=== PATIENT | male | born 1950 | race Caucasian/White ===

== ENCOUNTER → 2016-10-27 | Outpatient (CLI) | payer BC ==
[2016-06-28 18:10] VITALS: BP 138/77
[~2016-10-27] MED LIST: METF500T4 PO; RIVA15TA PO; ROSI2TAB PO
--- NOTE | 2016-10-27 14:06 | RAD ---
APPROVED REPORT Bilateral Lower Extremity Venous Study for DVT Patient Location: OUT-PATIENT Indications Deep venous system in the lower extremities was performed. On the right D common femoral vein appears to be grossly compressible proximally. The mid to distal s uperficial femoral vein and popliteal veins are noncompressible. Spectral waveforms and color Doppler reveal grossly normal flow patterns. Overall, there is not appear to be any significant restriction to flow. Limited evaluation of the greater saphenous vein on the right side reveals possible thrombus in the distal segments. The below-knee veins on the right side were not well visualized on sharma scal e images but there is spontaneous flow noted. The left common femoral vein, superficial femoral vein and popliteal veins on the left side are compr essible. Spectral waveforms and color Doppler are within normal limits. Below-knee veins again were n ot well visualized due to body habitus and were found to have spontaneous flow. Critical Notification Critical Value: No <Conclusion> Persistent right lower extremity deep venous thrombosis without any significant flow limitation.
== END | disposition home or self-care (01) ==
LOC: US 07:40
PROVIDERS: ATTEND Physician Assistant
DX: I25.10 Atherosclerotic heart disease of native coronary artery without angina pectoris (principal); I82.403 Acute embolism and thrombosis of unspecified deep veins of lower extremity, bilateral; M79.89 Other specified soft tissue disorders
CPT/HCPCS: 93970

== ENCOUNTER → 2016-10-27 | Outpatient (CLI) | payer BC ==
[2016-06-28 18:10] VITALS: BP 138/77
--- NOTE | 2016-10-27 13:40 | RAD ---
APPROVED REPORT Patient Location: OUT-PATIENT Indications Jose scale images of the bilateral lower extremities demonstrate mild diffuse calcification but no hi gh grade lesions noted. Spectral waveforms and color doppler evaluation does not reveal any elevated velocities. Spectral tracings are triphasic. Critical Notification Critical Value: No <Conclusion> No significant high grade arterial stenosis in the bilateral lower extremities.
== END | disposition home or self-care (01) ==
LOC: US 07:47
PROVIDERS: ATTEND Internal Medicine Cardiovascular Disease
DX: I25.10 Atherosclerotic heart disease of native coronary artery without angina pectoris (principal)
CPT/HCPCS: 93925

== ENCOUNTER → 2017-06-13 | Outpatient (CLI) | payer BC ==
[2016-06-28 18:10] VITALS: BP 138/77
--- NOTE | 2017-06-13 16:33 | RAD ---
APPROVED REPORT Right Lower Extremity Venous Study for DVT Patient Location: OUT-PATIENT Indications Jose scale images of the right lower ext deep veins were obtained. The R femoral and popliteal veins have a non-occlusive thrombus (chronic known) with non-compressibility. The below knee veins on the r ight side demonstrate spontaneous flow and appear to be compressible. (Images are technically limited ). Spectral images of the RLE do not reveal any evidence of complete obstruction, but there is loss o f respirophasicity in the femoral vein. The common femoral vein bilaterally is free of thrombus. Critical Notification Critical Value: No <Conclusion> Persistent right femoral and popliteal vein DVT. The thrombus is chronic and is non-flow limiting.
== END | disposition home or self-care (01) ==
LOC: US 12:45
PROVIDERS: ATTEND Internal Medicine Cardiovascular Disease
DX: I82.511 Chronic embolism and thrombosis of right femoral vein (principal); I82.531 Chronic embolism and thrombosis of right popliteal vein; Z79.01 Long term (current) use of anticoagulants
CPT/HCPCS: 93971

== ENCOUNTER → 2020-03-03 | Outpatient (CLI) | payer MEDICARE ==
[2016-06-28 18:10] VITALS: BP 138/77
[~2020-03-03] MED LIST changes: +METF500T16 PO; -METF500T4 PO
--- NOTE | 2020-03-03 14:14 | CARD ---
MR#: [id number] Date of Study: 03/03/2020 Ordering Physician: OMARI YEAGER, Referring Physician: OMARI YEAGER, Tech: Claire Osborn APPROVED REPORT EXAM: Two-dimensional and M-mode echocardiogram with Doppler and color Doppler. Other Information Quality : Average Technically limited study due to INDICATION Congestive Heart Failure RISK FACTORS Hypertension Hyperlipidemia Diabetes 2D DIMENSIONS RVDd4.1 (2.9-3.5cm)Left Atrium(2D)3.8 (1.6-4.0cm) IVSd1.3 (0.7-1.1cm)Aortic Root(2D)3.6 (2.0-3.7cm) LVDd4.5 (3.9-5.9cm)LVOT Diameter2.2 (1.8-2.4cm) PWd1.0 (0.7-1.1cm)LVDs3.0 (2.5-4.0cm) FS (%) 32.2 %SV54.8 ml LVEF(%)60.5 (>50%) Aortic Valve AoV Peak Roman.122.7cm/sAoV VTI25.7cm AO Peak GR.6.0mmHgLVOT Peak Roman.103.1cm/s LVOT VTI 20.44cmAO Mean GR.3mmHg GONZALO (VMAX)3.40wd4SLA (VTI)3.08cm2 Mitral Valve MV E Fjfbmcpg77.7cm/sMV E Peak Gr.2mmHg MV DECEL [id number] A Cknpmyge07.2cm/s MV E Mean Gr.1mmHgE/A Ratio0.7 Pulmonary Valve PV Peak Upizuhnd70.5cm/sPV Peak Grad.4mmHg Tricuspid Valve TR P. Jipnfgfm193mu/sRAP POJXTRKT0mnYs TR Peak Gr.81duJpCUNC57glAh Pulmonary Vein S1 Vaanszdn40.0cm/sD2 Ucezcmix29.5cm/s LEFT VENTRICLE The left ventricle is normal size. There is borderline to mild concentric left ventricular hypertroph y. The left ventricular systolic function is normal and the ejection fraction is within normal range. The Ejection Fraction is 50-55%. There is normal LV segmental wall motion. Transmitral Doppler flow pattern is Grade I-abnormal relaxation pattern. RIGHT VENTRICLE The right ventricle is normal size. There is normal right ventricular wall thickness. The right ventr icular systolic function is normal. ATRIA The left atrium size is normal. The right atrium size is normal. The interatrial septum is intact wit h no evidence for an atrial septal defect or patent foramen ovale as noted on 2-D or Doppler imaging. AORTIC VALVE The aortic valve is calcified but opens well. Doppler and Color Flow revealed no significant aortic r egurgitation. There is no significant aortic valvular stenosis. Calculated aortic valve area is 3.3 c m2 with maximum pressure gradient of 6 mmHg and mean pressure gradient of 4 mmHg. MITRAL VALVE The mitral valve is normal in structure and function. There is no evidence of mitral valve prolapse. There is no mitral valve stenosis. Doppler and Color Flow revealed no mitral valve regurgitation note d. TRICUSPID VALVE The tricuspid valve is normal in structure and function. Doppler and Color Flow revealed trace tricus pid regurgitation with an estimated PAP of 21 mmHg. There is no tricuspid valve stenosis. PULMONIC VALVE The pulmonic valve is not well visualized. Doppler and Color Flow revealed no pulmonic valvular regur gitation. There is no pulmonic valvular stenosis. GREAT VESSELS The aortic root is normal in size. The IVC was not well visualized. PERICARDIAL EFFUSION There is no evidence of significant pericardial effusion. Critical Notification Critical Value: No <Conclusion> The left ventricular systolic function is normal and the ejection fraction is within normal range. Th e Ejection Fraction is 50-55%. There is normal LV segmental wall motion. Signed by : Omari Yeager, Electronically Approved : 03/03/2020 14:13:48
== END | disposition home or self-care (01) ==
LOC: ECHO 09:51
PROVIDERS: ATTEND Internal Medicine Cardiovascular Disease
DX: I35.1 Nonrheumatic aortic (valve) insufficiency (principal); I50.30 Unspecified diastolic (congestive) heart failure; I51.7 Cardiomegaly
CPT/HCPCS: 93306

== ENCOUNTER 2021-11-10 09:12 | Emergency (ER) | payer MEDICARE ==
[~2021-11-10] VITALS: Ht 180.3 cm; Wt 132.3 kg
--- NOTE | 2021-11-10 10:00 | RAD ---
EXAM: XR CHEST 1V 11/10/2021 9:54 AM CLINICAL INDICATION: Fall, pain COMPARISON: None TECHNIQUE: AP view of the chest FINDINGS: The heart is normal in size. The lungs are hypoexpanded. No consolidation, pleural effusio n, or pneumothorax. There is a left proximal humerus fracture. IMPRESSION: 1. No acute cardiopulmonary abnormality. 2. Left proximal humerus fracture. Electronically signed by: Viky De Anda MD (11/10/2021 9:58 AM) [id number]
--- NOTE | 2021-11-10 10:03 | RAD ---
EXAM: XR HUMERUS_LT 2 VIEWS 11/10/2021 9:54 AM CLINICAL INDICATION: Fall, pain COMPARISON: None TECHNIQUE: AP and lateral views of the left humerus. FINDINGS: There are is a left proximal humerus fracture involving the head and neck. There may be mil d angulation but no significant displacement of the fracture. Alignment is normal. There is glenohume ral degenerative joint disease. IMPRESSION: Acute left proximal humerus fracture. Electronically signed by: Viky De Anda MD (11/10/2021 10:00 AM) [id number]
[2021-11-10] MEDS: BACITRACIN ZINC TOPICAL OINT PACKET. TP ONE (10:22)
[2021-11-10] MEDS: DIPHTH,PERTUSS(ACELL),TET TOX 0.5 ML DISP.SYRIN. VAX IM ONE (10:23)
[2021-11-10] MEDS ORDERED: TRAM50TA PO (10:33)
[2021-11-10] MEDS ORDERED: ONDA4TAB12 PO (10:33)
--- NOTE | 2021-11-10 10:33 | PHYS DOC ---
Past History Past Medical History: Diabetes, High Cholesterol, Hypertension Past Surgical History: Other Additional Past Surgical Histo: R elbow, eye surgery Alcohol Use: None Drug Use: None General Adult EDM: Chief Complaint: MECHANICAL FALL HPI: HPI: Patient is a 71-year-old male with left shoulder pain. Patient states he was taking out the trash last night when he lost his balance and fell, landed on the left shoulder. He has not been able to move his arm at the shoulder joint secondary to this event. Denies any loss of consciousness or headache. No neck pain or back pain. No trouble breathing or lower extremity discomfort. Last tetanus is unknown. Review of Systems: Review of Systems: Constitutional: Denies fever Eyes: Denies change in visual acuity or eye pain HENT: Denies sore throat Respiratory: Denies shortness of breath Cardiovascular: Denies chest pain GI: Denies abd pain : Denies dysuria Musculoskeletal: Denies back injury Integument: Denies rash or skin lesions Neurologic: Denies headache, focal weakness or sensory changes All other systems were reviewed and found to be within normal limits, except as documented in this note. Current Medications: Current Meds: Current Medications Medications (Trade) Dose Ordered Sig/Estefani Start Time Stop Time Status Last Admin Dose Admin Bacitracin (Bacitracin Topical Pkt) 1 pkt 1X ONCE 11/10/21 10:30 11/10/21 10:31 11/10/21 10:22 1 PKT Diphtheria/ Tetanus/Acell Pertussis (Boostrix) 0.5 ml ONCE ONCE 11/10/21 10:30 11/10/21 10:31 11/10/21 10:23 0.5 ML Allergies: Allergies: Allergies Coded Allergies Type Severity Reaction Last Updated Verified acetaminophen Allergy Unknown 06/28/16 Yes codeine Allergy Unknown 06/28/16 Yes hydrocodone Allergy Unknown 11/10/21 Yes Uncoded Allergies Type Severity Reaction Last Updated Verified unknown antibiotic Allergy Unknown 06/28/16 Physical Exam: PE: Constitutional: Well developed, well nourished, no acute distress, non-toxic appearance. HENT: Normocephalic, atraumatic, bilateral external ears normal, mucosa moist, nose normal. Eyes: EOMI, conjunctiva normal, no discharge. Neck: Normal range of motion, supple, no stridor, no meningeal signs. Cardiovascular: Regular rate and rhythm Lungs & Thorax: Bilateral breath sounds clear to auscultation Abdomen: Soft, no tenderness or obvious masses Skin: Warm, dry, no erythema, no rash. 2 separate abrasions about 3 cm in size apiece over the left elbow. Extremities: Patient is unable to move at the left shoulder secondary to pain. He does not have any neurovascular compromise distally. Neurologic: Alert and oriented, normal motor function, normal sensory function, no focal deficits noted. Psychologic: Affect normal, judgement normal, mood normal. Current Patient Data: Vital Signs: Vital Signs Date Time Temp Pulse Resp B/P (MAP) Pulse Ox O2 Delivery O2 Flow Rate FiO2 11/10/21 09:31 98.5 88 18 155/84 (107) 95 Room Air EKG: EKG: [] Radiology/Procedures: Radiology/Procedures: [] Impressions: PATIENT: SCOTTY SALMON ACCOUNT: [id number] : 1950 LOCATION: ER AGE: 71 SEX: M EXAM STATUS: REG ER ORD. PHYSICIAN: STACY RIVERA MD REASON: fall, pain PROCEDURE: CHEST AP ONLY EXAM: XR CHEST 1V 11/10/2021 9:54 AM CLINICAL INDICATION: Fall, pain COMPARISON: None TECHNIQUE: AP view of the chest FINDINGS: The heart is normal in size. The lungs are hypoexpanded. No consolidation, pleural effusion, or pneumothorax. There is a left proximal humerus fracture. IMPRESSION: 1. No acute cardiopulmonary abnormality. 2. Left proximal humerus fracture. Electronically signed by: Viky De Anda MD (11/10/2021 9:58 AM) [id number] DICTATED AND SIGNED BY: VIKY DE ANDA MD DATE: 11/10/21 0956 CC: ENRIQUE MCLAUGHLIN MD; STACY RIVERA MD ~ PATIENT: SCOTTY SALMON ACCOUNT: [id number] : 1950 LOCATION: ER AGE: 71 SEX: M EXAM STATUS: REG ER ORD. PHYSICIAN: STACY RIVERA MD REASON: fall, pain PROCEDURE: HUMERUS LEFT EXAM: XR HUMERUS_LT 2 VIEWS 11/10/2021 9:54 AM CLINICAL INDICATION: Fall, pain COMPARISON: None TECHNIQUE: AP and lateral views of the left humerus. FINDINGS: There are is a left proximal humerus fracture involving the head and neck. There may be mild angulation but no significant displacement of the fracture. Alignment is normal. There is glenohumeral degenerative joint disease. IMPRESSION: Acute left proximal humerus fracture. Electronically signed by: Viky De Anda MD (11/10/2021 10:00 AM) [id number] DICTATED AND SIGNED BY: VIKY DE ANDA MD DATE: 11/10/21 0958 CC: ENRIQUE MCLAUGHLIN MD; STACY RIVERA MD ~ Heart Score: C/O Chest Pain: No Risk Factors: Risk Factors: DM, Current or recent (<one month) smoker, HTN, HLP, family history of CAD, obesity. Risk Scores: Score 0 - 3: 2.5% MACE over next 6 weeks - Discharge Home Score 4 - 6: 20.3% MACE over next 6 weeks - Admit for Clinical Observation Score 7 - 10: 72.7% MACE over next 6 weeks - Early Invasive Strategies Course & Med Decision Making: Course & Med Decision Making Pertinent Labs and Imaging studies reviewed. (See chart for details) [] This is a 71-year-old male with a proximal humerus fracture post fall. He also has a couple of abrasions over his left elbow. These were cleaned and covered with bacitracin ointment. Shoulder immobilizer was applied. Patient to be given a prescription for tramadol and Zofran. We will have him follow-up with orthopedics for definitive management, he is stable for discharge at this time. Dragon Disclaimer: Dragon Disclaimer: This electronic medical record was generated, in whole or in part, using a voice recognition dictation system. Departure Departure: Impression: Primary Impression: Proximal humerus fracture Disposition: 01 HOME / SELF CARE / HOMELESS Condition: STABLE Referrals: ENRIQUE MCLAUGHLIN MD (PCP) [facility] Patient Instructions: Humerus Fracture, Treated with Immobilization Scripts Ondansetron (ONDANSETRON ODT) 4 Mg Tab.rapdis 1 TAB PO Q6HRS for nausea, #20 TAB Prov: STACY RIVERA MD 11/10/21 Tramadol Hcl (TRAMADOL HCL) 50 Mg Tablet 50 MG PO PRN Q6HRS PRN for PAIN, #20 TAB Prov: STACY RIVERA MD 11/10/21 STACY RIVERA MD Nov 10, 2021 10:33
[2021-11-10 10:50] VITALS: BP 145/81
[2021-11-11] MEDS ORDERED: TRAM50TA PO (13:49)
== END 2021-11-10 11:09 | disposition home or self-care (01) ==
LOC: ER 09:12
DX: S42.202A Unspecified fracture of upper end of left humerus, initial encounter for closed fracture (principal); W18.39XA Other fall on same level, initial encounter; Y93.89 Activity, other specified; Y92.89 Other specified places as the place of occurrence of the external cause; Y99.8 Other external cause status; E11.9 Type 2 diabetes mellitus without complications; E78.00 Pure hypercholesterolemia, unspecified; I10 Essential (primary) hypertension; Z88.5 Allergy status to narcotic agent; Z88.8 Allergy status to other drugs, medicaments and biological substances
CPT/HCPCS: 29105; 71045; 73060; 90471; 90715; 99284

== ENCOUNTER → 2021-12-09 | Outpatient (CLI) | payer MEDICARE ==
[2021-11-10 10:50] VITALS: BP 145/81
[~2021-12-09] MED LIST changes: +ONDA4TAB12 PO; +TRAM50TA PO
--- NOTE | 2021-12-09 10:42 | RAD ---
Exam: XR SHOULDER_LEFT 2+ VIEWS History: Follow-up proximal humerus fracture Comparison: 11/10/2021 Findings: Redemonstrated comminuted fracture of the left proximal humerus involving the surgical neck and head. Unchanged mild angulation with impaction of the medial fracture component. Interval remodeling with areas of sclerosis and lucency along the fracture margins. Degenerative changes of the glenohumeral j oint without dislocation. Well-corticated ossific body measuring approximately 2.2 x 1.1 cm at the ax illary pouch. Impression: 1. Early healing changes at comminuted proximal left humerus fracture involving the surgical neck an d humeral head. 2. Degenerative changes of the glenohumeral joint. Electronically signed by: Jese Veliz MD (12/09/2021 10:39 AM) [id number]
== END ==
LOC: RAD 10:15
PROVIDERS: ATTEND Physician Assistant
DX: S42.292D Other displaced fracture of upper end of left humerus, subsequent encounter for fracture with routine healing (principal); M19.012 Primary osteoarthritis, left shoulder; X58.XXXD Exposure to other specified factors, subsequent encounter
CPT/HCPCS: 73030

== ENCOUNTER → 2021-12-09 | Outpatient (CLI) | payer MEDICARE ==
[2021-11-10 10:50] VITALS: BP 145/81
== END ==
LOC: LAB 17:42
PROVIDERS: ATTEND Physician Assistant
DX: L08.9 Local infection of the skin and subcutaneous tissue, unspecified (principal)
CPT/HCPCS: 87075; 87186